=== PATIENT | female | born 1985 | race Two or more races ===

== ENCOUNTER 2021-09-05 21:41 | Emergency (ER) | payer OTHER ==
[~2021-09-05] VITALS: Ht 160 cm; Wt 61.2 kg
[2021-09-05] MEDS ORDERED: TYLENOL (22:02)
[2021-09-06] MEDS ORDERED: PEPCID40 MG PO (03:55)
[2021-09-06] MEDS ORDERED: ONDANSETRON ODT4 MG PO (03:55)
== END 2021-09-06 04:03 ==
LOC: ER 21:41
DX: O26.899 Other specified pregnancy related conditions, unspecified trimester (principal); Z3A.00 Weeks of gestation of pregnancy not specified; R10.2 Pelvic and perineal pain; R11.10 Vomiting, unspecified; Z88.8 Allergy status to other drugs, medicaments and biological substances

== ENCOUNTER 2021-10-16 16:43 | Emergency (ER) | payer OTHER ==
[~2021-10-16] VITALS: Ht 160 cm; Wt 75.3 kg
[~2021-10-16 16:43] MED LIST: ONDANSETRON ODT4 MG PO; PEPCID40 MG PO; TYLENOL
[2021-10-16] MEDS ORDERED: METOCLOPRAMIDE10 MG PO (20:49)
== END 2021-10-16 20:58 | disposition home or self-care (01) ==
LOC: ER 16:43
DX: O21.0 Mild hyperemesis gravidarum (principal); Z3A.12 12 weeks gestation of pregnancy

== ENCOUNTER 2021-12-04 10:55 | Inpatient (IN) | payer OTHER ==
[~2021-12-04] VITALS: Ht 154.9 cm; Wt 69.9 kg
[~2021-12-04 10:55] MED LIST changes: +METOCLOPRAMIDE10 MG PO
[2021-12-06] MEDS ORDERED: PRENATAL CAPLE1 EAC1 PO (00:35)
[2021-12-09] MEDS ORDERED: PROMETHAZI25 MG/1 ML IM (10:04)
[2021-12-09] MEDS ORDERED: SOD CITRATE-CI473 ML PO (10:06)
[2021-12-09] MEDS ORDERED: FAMOTIDINE20 MG/2 M1 PO (10:07)
== END 2021-12-09 10:47 | disposition home or self-care (01) | DRG 833 ==
LOC: ER 10:55 → SEC-K 12-05 14:47 → OB/GYN 12-05 14:47 → LDR 12-05 18:56 → OB/GYN 12-06 11:25
PROVIDERS: ADMIT Obstetrics & Gynecology; ATTEND Obstetrics & Gynecology
PROC: 4A1HXCZ Monitoring of Products of Conception, Cardiac Rate, External Approach (ICD-10-PCS; principal; 2021-12-05)
PROC: BY4CZZZ Ultrasonography of Second Trimester, Single Fetus (ICD-10-PCS; 2021-12-05)
PROC: BW40ZZZ Ultrasonography of Abdomen (ICD-10-PCS; 2021-12-05)
DX: O21.1 Hyperemesis gravidarum with metabolic disturbance (principal); O21.0 Mild hyperemesis gravidarum; Z3A.22 22 weeks gestation of pregnancy; Z20.822 Contact with and (suspected) exposure to COVID-19

== ENCOUNTER 2022-03-04 15:10 | Inpatient (IN) | payer OTHER ==
[~2022-03-04] VITALS: Ht 160 cm; Wt 83.9 kg
[~2022-03-04 15:10] MED LIST changes: +FAMOTIDINE20 MG/2 M1 PO; +PRENATAL CAPLE1 EAC1 PO; +PROMETHAZI25 MG/1 ML IM; +SOD CITRATE-CI473 ML PO
[2022-03-07] MEDS ORDERED: PAIN RELIEVER500 M2 PO (07:16)
[2022-03-07] MEDS ORDERED: MUCINEX600 MG PO (07:16)
[2022-03-07] MEDS ORDERED: HYDROXYZINE PAM50 MG PO (07:16)
[2022-03-07] MEDS ORDERED: ZITHROMAX500 MG PO (07:17)
== END 2022-03-07 13:23 | disposition home or self-care (01) | DRG 831 ==
LOC: OBS/DEL 15:10 → LDR 16:47 → OB/GYN 16:47
PROVIDERS: ADMIT Obstetrics & Gynecology; ATTEND Obstetrics & Gynecology
PROC: 8E0ZXY6 Isolation (ICD-10-PCS; principal; 2022-03-04)
PROC: 4A1HXCZ Monitoring of Products of Conception, Cardiac Rate, External Approach (ICD-10-PCS; 2022-03-04)
PROC: BW40ZZZ Ultrasonography of Abdomen (ICD-10-PCS; 2022-03-04)
PROC: BY4FZZZ Ultrasonography of Third Trimester, Single Fetus (ICD-10-PCS; 2022-03-04)
PROC: B246ZZZ Ultrasonography of Right and Left Heart (ICD-10-PCS; 2022-03-04)
DX: O98.513 Other viral diseases complicating pregnancy, third trimester (principal); U07.1 COVID-19; O98.813 Other maternal infectious and parasitic diseases complicating pregnancy, third trimester; O99.891 Other specified diseases and conditions complicating pregnancy; R00.0 Tachycardia, unspecified; Z3A.31 31 weeks gestation of pregnancy; B96.0 Mycoplasma pneumoniae [M. pneumoniae] as the cause of diseases classified elsewhere

== ENCOUNTER 2022-03-12 12:28 | Inpatient (IN) | payer OTHER ==
[~2022-03-12] VITALS: Ht 160 cm; Wt 85.7 kg
[~2022-03-12 12:28] MED LIST changes: +HYDROXYZINE PAM50 MG PO; +MUCINEX600 MG PO; +PAIN RELIEVER500 M2 PO; +ZITHROMAX500 MG PO
[2022-03-15] MEDS ORDERED: CEFUROXIME500 MG PO (08:57)
== END 2022-03-15 10:11 | disposition home or self-care (01) | DRG 833 ==
LOC: LDR 12:28 → OB/GYN 12:28 → LDR 03-13 07:47 → OB/GYN 03-14 08:26
PROVIDERS: ADMIT Obstetrics & Gynecology; ATTEND Obstetrics & Gynecology
PROC: 4A1HXCZ Monitoring of Products of Conception, Cardiac Rate, External Approach (ICD-10-PCS; principal; 2022-03-12)
PROC: BY4FZZZ Ultrasonography of Third Trimester, Single Fetus (ICD-10-PCS; 2022-03-12)
PROC: BU4CZZZ Ultrasonography of Uterus and Ovaries (ICD-10-PCS; 2022-03-12)
PROC: BT43ZZZ Ultrasonography of Bilateral Kidneys (ICD-10-PCS; 2022-03-12)
DX: O26.893 Other specified pregnancy related conditions, third trimester (principal); N20.0 Calculus of kidney; Z3A.32 32 weeks gestation of pregnancy; Z20.822 Contact with and (suspected) exposure to COVID-19

== ENCOUNTER 2022-04-01 17:57 | Outpatient (CLI) | payer OTHER ==
[~2022-04-01 17:57] MED LIST changes: +CEFUROXIME500 MG PO
[2022-04-01] MEDS ORDERED: PEPCID AC20 MG PO (18:38)
== END 2022-04-02 07:55 | disposition home or self-care (01) ==
LOC: OBS/DEL 17:57
PROVIDERS: ATTEND Obstetrics & Gynecology
DX: O26.893 Other specified pregnancy related conditions, third trimester (principal); Z3A.35 35 weeks gestation of pregnancy; N20.0 Calculus of kidney

== ENCOUNTER 2022-04-07 10:54 | Inpatient (IN) | payer OTHER ==
[~2022-04-07] VITALS: Ht 160 cm; Wt 2.7 kg
[~2022-04-07 10:54] MED LIST changes: +PEPCID AC20 MG PO
[2022-04-07] MEDS ORDERED: PRENATAL TABLE1 EAC1 PO (12:19)
[2022-04-07] MEDS ORDERED: PEPCID AC20 MG PO (12:19)
[2022-04-07] MEDS ORDERED: TYLENOL EXTRA500 MG PO (12:20)
[2022-04-10] MEDS ORDERED: KETO10TA2 PO (06:52)
[2022-04-10] MEDS ORDERED: COLACE100 MG PO (06:53)
[2022-04-10] MEDS ORDERED: SIMETHICONE80 MG PO (06:53)
== END 2022-04-10 14:30 | disposition home or self-care (01) | DRG 785 ==
LOC: LDR 10:54 → OB/GYN 10:54 → O/R 10:54 → OB/GYN 15:58
PROVIDERS: ADMIT Obstetrics & Gynecology; ATTEND Obstetrics & Gynecology
PROC: 0UB70ZZ Excision of Bilateral Fallopian Tubes, Open Approach (ICD-10-PCS; 2022-04-07)
PROC: 4A1HXCZ Monitoring of Products of Conception, Cardiac Rate, External Approach (ICD-10-PCS; 2022-04-07)
PROC: 10D00Z1 Extraction of Products of Conception, Low, Open Approach (ICD-10-PCS; principal; 2022-04-07 15:15)
DX: O60.14X0 Preterm labor third trimester with preterm delivery third trimester, not applicable or unspecified (principal); O34.211 Maternal care for low transverse scar from previous cesarean delivery; Z3A.36 36 weeks gestation of pregnancy; Z37.0 Single live birth; Z20.822 Contact with and (suspected) exposure to COVID-19; Z30.2 Encounter for sterilization